=== PATIENT | female | born 1975 | race Caucasian/White ===

== ENCOUNTER 2021-11-18 13:13 | Inpatient (IN) | payer OTHER ==
[~2021-11-18] VITALS: Ht 162.6 cm; Wt 98.4 kg
[2021-11-18 14:13] LABS: BASOPHILS # (AUTO) 0.1 K/uL (0.00-0.22); BASOPHILS % (AUTO) 1.2 % (0.0-2.0); EOSINOPHILS # (AUTO) 0.2 K/uL (0-0.4); EOSINOPHILS % (AUTO) 2.4 % (0.0-4.0); HEMATOCRIT 40.6 % (36-48); HEMOGLOBIN 13.7 g/dL (12.0-16.0); LYMPHOCYTES # (AUTO) 3.5 K/uL (2.5-16.5); LYMPHOCYTES % (AUTO) 46.7 % (20.5-51.1); MEAN CORPUSCULAR HEMOGLOBIN 31 pg (27-31); MEAN CORPUSCULAR HGB CONC 34 g/dL (33-37); MEAN CORPUSCULAR VOLUME 90.7 fL (80-94); MONOCYTES # (AUTO) 0.4 K/uL (0.8-1.0); MONOCYTES % (AUTO) 6.1 % (1.7-9.3); NEUTROPHILS # (AUTO) 3.2 K/uL (1.8-7.7); NEUTROPHILS % (AUTO) 43.6 % (42.2-75.2); PLATELET COUNT (AUTO) 268 K/uL (140-450); RED BLOOD CELL COUNT(AUTO) 4.48 MIL/uL (4.20-5.40); RED CELL DISTRIBUTION WIDTH 13.1 % (11.6-13.7); WHITE BLOOD COUNT (AUTO) 7.4 K/uL (4.8-10.8)
[2021-11-18 14:38] LABS: ALBUMIN 3.9 g/dL (3.4-5.0); ANION GAP 10.8 (8-16); CARBON DIOXIDE 24.1 mmol/L (21-32); CREATININE 0.7 mg/dL (0.6-1.3); POTASSIUM 3.9 mmol/L (3.5-5.1); TOTAL BILIRUBIN 0.5 mg/dL (0.0-1.0)
[2021-11-18] MEDS ORDERED: oxyCODONE/APAP 5/325 MG 1 TAB TAB PO PRN (17:45)
[2021-11-18] MEDS ORDERED: PROPOFOL 200 MG/20 ML VIAL IV ONE (18:08)
[2021-11-18] MEDS ORDERED: SUCCINYLCHOLINE CHLORIDE 200 MG/10 ML VIAL IVP ONE (18:09)
[2021-11-18] MEDS ORDERED: diphenhydrAMINE 50 MG/ML VIAL IVP PRN (18:10)
[2021-11-18] MEDS ORDERED: HYDROmorphone 1 MG/ML AMP IVP PRN (18:10)
[2021-11-18] MEDS ORDERED: MEPERIDINE 25 MG/ML SYR IVP PRN (18:10)
[2021-11-18] MEDS ORDERED: fentaNYL citrate 0.05 MG/ML VIAL ONE ×2 (18:11→19:33)
[2021-11-18] MEDS ORDERED: BUPIVACAINE-MPF 0.25% 30 ML VIAL INJ ONE (18:23)
[2021-11-18] MEDS ORDERED: LIDOCAINE/EPI MPF 1%1:200000 30 ML VIAL INJ ONE (18:23)
[2021-11-18] MEDS ORDERED: SEVOFLURANE 250 ML BTL INH ONE (18:25)
[2021-11-18] MEDS ORDERED: ROCURONIUM 50 MG/5 ML VIAL IV ONE ×2 (18:42→19:33)
[2021-11-18] MEDS ORDERED: ONDANSETRON 4 MG/2 ML VIAL ONE (18:47)
[2021-11-18] MEDS ORDERED: ePHEDrine 50 MG/ML VIAL ONE (19:12)
[2021-11-18] MEDS ORDERED: GLYCOPYRROLATE 0.2 MG/ML VIAL ONE (19:13)
[2021-11-18] MEDS ORDERED: LIDOCAINE/EPI 1% 1:100000 20 ML VIAL INJ ONE (20:32)
[2021-11-18] MEDS ORDERED: MEPERIDINE 50 MG/ML SYR ONE (20:57)
[2021-11-18] MEDS ORDERED: SUGAMMADEX SODIUM 200 MG/2 ML VIAL IV ONE (20:58)
[2021-11-18] MEDS: ONDANSETRON 4 MG/2 ML VIAL IVP PRN (21:50)
--- NOTE | 2021-11-18 22:00 | NUR ---
RECEIVD PATIENT FROM OR NURSE. PT IS POST TOTAL HYSTERECTOMY. ALERT ORIENTED X 4, IV ON RT WRIST 20 G INTACT AND PATENT .PATIENT IS STABLE
[2021-11-18] MEDS: LACTATED RINGERS 1,000 ML IV SCH ×2 (22:40)
[2021-11-19] VITALS: BP 116/71
[2021-11-19] MEDS: LACTATED RINGERS 1,000 ML IV SCH ×5 (00:25→20:25)
--- NOTE | 2021-11-19 02:35 | NUR ---
P[ATIENT COMPLAINED OF ABDOMINAL PAIN 01/01. DILAUDID 0.5 MG GIVEN TOLERATED WELL
[2021-11-19] MEDS: ONDANSETRON 4 MG/2 ML VIAL IVP PRN ×3 (02:47→16:38)
[2021-11-19 04:00] VITALS: BP 135/73
--- NOTE | 2021-11-19 06:00 | NUR ---
PATIENT IS AWAKE,NO N/V NOTED,VS WNL,NO DISTRESS BPOTED
--- NOTE | 2021-11-19 07:30 | NUR ---
RECEIVED REPORT FROM ARCHITECTURE DRAFTER, PT RESTING ON BED, RESPIRATION EVEN, UNLABORED, POC DISCUSSED, WILL CONTINUE MONITOR, ALL SAFETY MEASURE IN PLACE. CALL LIGHT WITHIN REACH
[2021-11-19 08:00] VITALS: BP 112/69
--- NOTE | 2021-11-19 08:18 | NUR ---
PT C/O NAUSEA, GIVE ZOFRAN MD ORDERED BY IV PUSH.
--- NOTE | 2021-11-19 08:29 | NUR ---
RAMSAY CATHETER REMOVED PER MD ORDER. PT TOLERATED WELL. NO PAIN NOTED ON REMOVAL. 10CC OF FLUID REMOVED FROM CATHETER BALLOON. EDUCATED PT ON VOIDING WITHIN 4 HOURS AND IMPORTANCE ON AMBULATION AFTER SURGERY.
--- NOTE | 2021-11-19 08:47 | NUR ---
PATIENT HAS BEEN SCREENED AND CATEGORIZED LOW NUTRITION RISK. PATIENT WILL BE SEEN WITHIN 7 DAYS OF ADMISSION. 11/25/[address]
--- NOTE | 2021-11-19 08:52 | NUR ---
RECEIVED CALL FROM DR. VIDAL, UPDATED ON PT'S CONDITION. INFORMED HIM OF THE PAIN AND NAUSEA. HE ORDERED IBUPROFEN TID FOR MILD PAIN AND REGLAN 10 MG IVP TID PRN FOR NAUSEA.
[2021-11-19] MEDS: oxyCODONE/APAP 5/325 MG 1 TAB TAB PO PRN ×2 (08:58→21:49)
--- NOTE | 2021-11-19 08:58 | NUR ---
PT STATES SHE IS HAVING PAIN AT A SCALE OF 9/10 IN THE LOWER ABD. PT WAS GIVEN PERCOCET FOR PAIN ORDERED. WILL MONITOR.
--- NOTE | 2021-11-19 09:00 | NUR ---
PT RESTING ON BED, RESPIRATION EVEN, UNLABORED, NO ACUTE DISTRESS NOTED. ALL SAFETY MEASURE IN PLACE, CALL LIGHT WITHIN REACH, WILL CONTINUE TO MONITOR.
[2021-11-19] MEDS: IBUPROFEN 800 MG TAB PO SCH ×2 (11:29→16:32)
--- NOTE | 2021-11-19 11:29 | NUR ---
PT C/O OF ABD AND VAGINAL PAIN 12/01, MOTRIN GIVEN PER MD ORDER.
[2021-11-19] MEDS: METOCLOPRAMIDE 10 MG/2 ML INJ VIAL IVP PRN ×2 (11:34→19:58)
--- NOTE | 2021-11-19 11:34 | NUR ---
PT C/O NAUSEA, ADMINISTERED REGLAN IV PUSH PER MD ORDER, WILL CONTINUE TO MONITOR.
[2021-11-19 12:00] VITALS: BP 115/68
--- NOTE | 2021-11-19 14:26 | NUR ---
ROUNDED ON PT. SHE IS AWAKE AND ALERT. NO DISTRESS NOTED. DENIES PAIN AT THIS TIME. PT HAS ONLY HAD ONE PAD OF VAGINAL BLOOD SINCE 10 AM. PT IS STABLE.
[2021-11-19 16:00] VITALS: BP 109/62
--- NOTE | 2021-11-19 16:50 | NUR ---
PT C/O NAUSEA AND VOMITING, ADMINISTERED ZOFRAN BY IV PUSH PER MD ORDER
--- NOTE | 2021-11-19 19:02 | NUR ---
REPORT GIVEN TO UPCOMING SHIFT NURSE FOR CONTINUE CARE, POINT CARE DISCUSSED, ALL SAFETY MEASURE IN PLACE, CALL LIGHT WITHIN REACH, WILL CONTINUE TO MONITOR.
--- NOTE | 2021-11-19 20:00 | NUR ---
Patient's Plan of Care was discussed and reviewed with MEHDI KATHLEEN
--- NOTE | 2021-11-19 22:00 | NUR ---
ASSISTED OUT OF BED TO GO TO THE BR TO VOID, ABLE TO VOID FREELY MODERATE AMOUNT OF CLEAR YELLOW URINE.
[2021-11-20] VITALS: BP 112/69
--- NOTE | 2021-11-20 | NUR ---
SLEEPING COMFORTABLY IN BED. RESPIRATION EVEN AND UNLABORED. CALL LIGHT IN REACH.
[2021-11-20] MEDS: METOCLOPRAMIDE 10 MG/2 ML INJ VIAL IVP SCH ×4 (01:09→17:35)
--- NOTE | 2021-11-20 03:00 | NUR ---
ASSISTED OUT OF BED TO GO TO THE BR TO VOID. NO BM YET BUT ABLE TO PASSED OUT GAS.
[2021-11-20] MEDS: LACTATED RINGERS 1,000 ML IV SCH ×3 (03:05→16:36)
[2021-11-20] MEDS: oxyCODONE/APAP 5/325 MG 1 TAB TAB PO PRN (04:15)
--- NOTE | 2021-11-20 06:00 | NUR ---
SLEEPING COMFORTABLY IN BED. NO VAGINAL BLEEDING NOTED DURING THE SHIFT. DISCHARGE VERY MINIMAL.
--- NOTE | 2021-11-20 06:56 | NUR ---
CONDITION REMAIN STABLE. ALL NEEDS ATTENDED.
--- NOTE | 2021-11-20 07:10 | NUR ---
ENDORSED TO AM SHIFT NURSE FOR CONTINUITY OF CARE.
[2021-11-20 08:00] VITALS: BP 129/73
--- NOTE | 2021-11-20 08:00 | NUR ---
RECEIVE ENDORSEMENT FROM PM SHIFT NURSE WHILE PATIENT REST IN BED W/ NO ACUTE DISTRESS, PIV R. WRIST LR INFUSING AT 150ML/HR. WILL CONTINUE TO MONITOR
[2021-11-20] MEDS ORDERED: PANTOPRAZOLE 40 MG INJ VIAL IVP SCH (09:00)
[2021-11-20] MEDS: IBUPROFEN 800 MG TAB PO SCH ×3 (09:35→17:34)
--- NOTE | 2021-11-20 18:59 | NUR ---
DR. VIDAL IS HERE AND ISSUE D/C ORDER FOR PATIENT. WILL F/U.
[2021-11-20 19:01] VITALS: BP 135/78
--- NOTE | 2021-11-20 20:01 | NUR ---
ENDORSE PT TO PM SHIFT NURSE WHILE PATIENT REST IN BED W/ NO ACUTE DISTRESS, PIV R. WRIST LR INFUSING AT 150ML/HR, D/C ORDER IN PLACE.
--- NOTE | 2021-11-20 20:02 | NUR ---
RECEIVED PATIENT IN BED ALERT AND ORIENTED WITH FAMILY (DAUGHTER) AT BEDSIDE. PATIENT HAS ORDERS FOR DISCHARGE NOW. PATIENT DENIED ANY PAIN/DISCOMFORT AT THIS TIME. NO NOTED RESPIRATORY DISTRESS. PATIENT STATED SHE WANTED TO GO HOME. PATIENT EDUCATION TO DISCHARGE PAPERWORK AND APPOINTMENTS. SIDERAILS UP X 2 FOR SAFETY AND ADJUSTMENT. PATIENT WAS ABLE TO AMBULATE TO RESTROOM. [id number]
--- NOTE | 2021-11-20 21:08 | NUR ---
AT 2049 PATIENT WAS DISCHARGED FROM HOSPITAL TO PERSONAL VEHICLE WITH DAUGHTER. LAST VITAL SIGNS WAS NOTED AT TEMP 98.9 HEART RATE PULSE 85 RESPIRATORY 18 BLOOD PRESSURE 121/72 0/10 FOR HER PAIN LEVEL. IV WAS DISCONTINUED. ALL HOSPITAL I WERE REMOVED. PATIENT DRESSED IN OWN CLOTHING WAS TRANSPORTED OUT VIA WHEELCHAIR BY NURSING STAFF. ALL HOSPITAL DISCHARGE PAPERWORK WAS GIVEN AND SIGNED PAPERWORK WAS PLACED IN CHART. [id number]
== END 2021-11-20 20:50 | disposition home or self-care (01) | DRG 519 ==
LOC: MMU 13:13 → UNDOADMIN 13:13 → MTU 18:59
PROVIDERS: ADMIT Obstetrics & Gynecology; ATTEND Obstetrics & Gynecology
PROC: 0UT98ZZ Resection of Uterus, Via Natural or Artificial Opening Endoscopic (ICD-10-PCS; principal; 2021-11-20)
PROC: 0UT28ZZ Resection of Bilateral Ovaries, Via Natural or Artificial Opening Endoscopic (ICD-10-PCS; 2021-11-20)
PROC: 0UT78ZZ Resection of Bilateral Fallopian Tubes, Via Natural or Artificial Opening Endoscopic (ICD-10-PCS; 2021-11-20)
PROC: 0JQC0ZZ Repair Pelvic Region Subcutaneous Tissue and Fascia, Open Approach (ICD-10-PCS; 2021-11-20)
DX: D25.9 Leiomyoma of uterus, unspecified (principal); F32.A Depression, unspecified; N93.9 Abnormal uterine and vaginal bleeding, unspecified; N36.41 Hypermobility of urethra; N81.11 Cystocele, midline; Z20.822 Contact with and (suspected) exposure to COVID-19; N92.0 Excessive and frequent menstruation with regular cycle; N94.6 Dysmenorrhea, unspecified; Z83.3 Family history of diabetes mellitus; N39.3 Stress incontinence (female) (male)
CPT/HCPCS: 36415; 80053; 84702; 85025; 86886; 86900; 86901; 87081; C1771; C9113; J0330; J0690; J1170; J2001; J2175; J2405; J2704; J2765; J3010; J3490; J7030; J7060